=== PATIENT | male | born 1960 | race Caucasian/White ===

== ENCOUNTER 2017-02-12 17:13 | Inpatient (IN) | payer MEDICARE, MEDICAID ==
[~2017-02-12 17:13] MED LIST: ADVAIR HFA 115-12 GM IH; ALBUTEROL I0.5 ML/EA AERO NEB; AMARYL1 MG PO; AMIODARONE HCL200 MG PO; ASPIR 8181 M1 PO; ASPIRIN81 MG PO; ATROVENT0.2 MG/ML IH; AURYXIA PO; BENAZEPRIL HCL20 MG PO; BUMEX1 MG PO; CALCIUM ACETAT667 MG PO; CELEXA20 M1 PO; CELEXA20 M2 PO; CIPRO500 MG PO; COMBIVENT1 PUFF INH; CORDARONE200 M1 PO; COZAAR50 MG PO; DEPRESSION PILL PO; DOXYCYCLINE HY100 MG PO; DUONEB 2.5-0.5MG3 M1; GLUCAGON EME1 MG/KIT IM; GLUCAGON1 MG/KIT IJ; GLUCOPHAGE XR500 MG PO; GLUCOTROL5 MG PO; LEVAQUIN500 MG PO; LISINOPRIL10 MG PO; LISINOPRIL20 MG PO; LOPERAMIDE2 M2 PO; LOPERAMIDE2 MG PO; LOPRESSOR50 MG PO; MAXZIDE 37.5 M1 EACH PO; METOPROLOL TART25 MG PO; MIRALAX17 G1 PO; NEBULIZER INH; NORCO 5/325 TAB1 TAB PO; NORVASC5 MG PO; OXYGEN; PHOSLO667 M1 PO; PREDNISONE10 MG PO; RENAGEL800 M1 PO; RENAGEL800 MG PO; RENVELA800 M1 PO; RENVELA800 MG PO; SENSIPAR90 M1 PO; SIMVASTATIN20 M1 PO; SIMVASTATIN20 MG PO; SYMBICORT 160-1 PUFF INH; VANCOMYCIN750 MG/150 IV; VIBRAMYCIN100 MG PO; ZESTRIL20 MG PO; ZOCOR20 MG PO; ZOFRAN4 MG PO; [UNRECOGNIZED DRUG - MIXTURE] PO
[2017-02-12 17:55] LABS: ABG CO2 ARTERIAL 28 mmol/L (21-27); ARTERIAL BLD GAS O2 SATURATION 77 % (95-98); ARTERIAL BLOOD GAS PCO2 54 mmHg (32-45); BICARBONATE 26 mmol/L (21-28); BLOOD GAS BASE EXCESS 0 mM/L (-/+3); PH 7.31 Units (7.35-7.45)
[2017-02-12 17:56] LABS: ARTERIAL PO2 46 mmHg (70-100)
[2017-02-12 19:35] LABS: BASO % 0.3 % (0-2); EOS % 1.1 % (0-7); EOSINOPHIL ABSOLUTE COUNT 0.1 tho/cmm (0.0-0.7); HCT-HEMATOCRIT 28.8 % (36.0-53.5); HGB-HEMOGLOBIN 8.9 gm/dl (13.5-17.0); IMMATURE GRANULOCYTES ABSOLUTE 0.02 tho/cmm (0-0.03); IMMATURE GRANULOCYTES PERCENT 0.2 % (0-0.3); LYMPH % 5.9 % (20-45); LYMPH ABSOLUTE COUNT 0.7 tho/cmm (0.8-4.5); MCH (MEAN CORPUSCULAR HGB) 29.8 pg (28.0-32.0); MCHC MEAN CORPUSCULAR HGB CONC 30.9 % (32.0-36.0); MCV (MEAN CELL VOLUME) 96.3 fl (82.0-96.0); MEAN PLATELET VOLUME 10.5 cmc (9.4-12.4); MONO % 3.8 % (0-12); MONOCYTE ABSOLUTE COUNT 0.5 tho/cmm (0.0-1.2); NEUTROPHIL ABSOLUTE COUNT 10.9 tho/cmm (1.6-8.0); NEUTROPHIL-AUTOMATED 10.9 tho/cmm (1.6-8.0); NEUTROPHILS % 88.7 % (40-80); PLATELET COUNT 207 tho/cmm (150-450); RED BLOOD COUNT 2.99 mil/cmm (4.40-5.70); RED CELL DISTRIBUTION WIDTH 15.6 % (12.4-16.4); WHITE BLOOD COUNT 12.3 tho/cmm (4.0-10.0)
[2017-02-12 19:58] LABS: ANION GAP 16 mmol/L (0-20); BLOOD UREA NITROGEN 38 mg/dl (6-24); CALCIUM 7.9 mg/dl (8.5-10.5); CARBON DIOXIDE-VENOUS 27 mmol/L (22-32); CHLORIDE 99 mmol/l (96-110); CREATININE 7.86 mg/dl (0.60-1.30); GLUCOSE 175 mg/dL (70-110); POTASSIUM 3.9 mmol/L (3.7-5.1); SODIUM 138 mmol/L (135-145); eGFR VALUE FOR BLACK 8 mL/Min
[2017-02-12 21:57] LABS: ALB/GLOB RATIO 0.7 (0.8-2.0); ALBUMIN 3.6 g/dl (3.5-5.0); ALKALINE PHOSPHATASE 160 U/L (33-138); ALT/SGPT 16 U/L (12-78); AST/SGOT 14 U/L (10-40); BILIRUBIN,DIRECT <0.1 mg/dl (0.0-0.3); BILIRUBIN,INDIRECT 0.2 mg/dL (0.0-1.0); BILIRUBIN,TOTAL 0.3 mg/dl (0.0-1.5); C-REACTIVE PROTEIN 7.8 mg/dl (0-0.9)
[2017-02-12 22:02] LABS: PROCALCITONIN 3.28 ng/ml (0.05-0.09)
[2017-02-12 22:44] LABS: ABG CO2 ARTERIAL 22 mmol/L (21-27); ARTERIAL BLD GAS O2 SATURATION 100 % (95-98); ARTERIAL BLOOD GAS PCO2 27 mmHg (32-45); ARTERIAL PO2 144 mmHg (70-100); BICARBONATE 21 mmol/L (21-28); BLOOD GAS BASE EXCESS -1 mM/L (-/+3)
[2017-02-13 04:34] LABS: BASO % 0.1 % (0-2); EOS % 0.1 % (0-7); HGB-HEMOGLOBIN 8.3 gm/dl (13.5-17.0); IMMATURE GRANULOCYTES ABSOLUTE 0.02 tho/cmm (0-0.03); IMMATURE GRANULOCYTES PERCENT 0.2 % (0-0.3); LYMPH % 2.6 % (20-45); LYMPH ABSOLUTE COUNT 0.3 tho/cmm (0.8-4.5); MCH (MEAN CORPUSCULAR HGB) 29.3 pg (28.0-32.0); MCHC MEAN CORPUSCULAR HGB CONC 30.7 % (32.0-36.0); MCV (MEAN CELL VOLUME) 95.4 fl (82.0-96.0); MEAN PLATELET VOLUME 10.9 cmc (9.4-12.4); MONOCYTE ABSOLUTE COUNT 0.1 tho/cmm (0.0-1.2); NEUTROPHIL ABSOLUTE COUNT 9.6 tho/cmm (1.6-8.0); NEUTROPHIL-AUTOMATED 9.6 tho/cmm (1.6-8.0); PLATELET COUNT 208 tho/cmm (150-450); RED BLOOD COUNT 2.83 mil/cmm (4.40-5.70); RED CELL DISTRIBUTION WIDTH 15.4 % (12.4-16.4)
[2017-02-13 04:45] LABS: ANION GAP 19 mmol/L (0-20); BLOOD UREA NITROGEN 50 mg/dl (6-24); CALCIUM 8.1 mg/dl (8.5-10.5); CARBON DIOXIDE-VENOUS 23 mmol/L (22-32); CHLORIDE 97 mmol/l (96-110); CREATININE 8.81 mg/dl (0.60-1.30); POTASSIUM 4.3 mmol/L (3.7-5.1); SODIUM 135 mmol/L (135-145); eGFR VALUE FOR BLACK 7 mL/Min
[2017-02-13 04:46] LABS: GLUCOSE 303 mg/dL (70-110)
[2017-02-13] MEDS ORDERED: AMOXICILLIN875 M1 PO (10:38)
[2017-02-13] MEDS ORDERED: DALIRESP500 MC1 PO (10:38)
[2017-02-13] MEDS ORDERED: ALBUTEROL S5 MG/1 ML INH (10:38)
[2017-02-13] MEDS ORDERED: GLUCAGON EMERGEN1 MG SC (10:39)
[2017-02-13] MEDS ORDERED: AMBIEN5 M1 PO (10:40)
[2017-02-13] MEDS ORDERED: IPRAT-ALBUT 0.5-3 ML INH (10:40)
[2017-02-13] MEDS ORDERED: LEVOTHYROXINE50 MC3 PO (10:40)
[2017-02-13] MEDS ORDERED: SYMBICORT 160-1 PUFF INH (10:41)
[2017-02-13] MEDS ORDERED: AURYXIA PO (10:51)
[2017-02-14] MEDS ORDERED: PREDNISONE10 M1 PO (14:53)
[2017-02-14] MEDS ORDERED: ZITHROMAX250 M1 PO (14:54)
[2017-02-14] MEDS ORDERED: IPRAT-ALBUT 0.5-3 ML INH (14:55)
== END 2017-02-14 15:30 | DRG 190 ==
LOC: EDMED 17:13 → EMR2 21:30 → PCUA 23:45
PROVIDERS: Emergency Medicine; Internal Medicine; Internal Medicine Cardiovascular Disease; ADMIT Hospitalist
PROC: 5A09357 Assistance with Respiratory Ventilation, Less than 24 Consecutive Hours, Continuous Positive Airway Pressure (ICD-10-PCS; principal; 2017-02-12)
PROC: 5A1D00Z (ICD-10-PCS; 2017-02-14)
DX: J44.1 Chronic obstructive pulmonary disease with (acute) exacerbation (principal); N18.6 End stage renal disease; J96.21 Acute and chronic respiratory failure with hypoxia; I12.0 Hypertensive chronic kidney disease with stage 5 chronic kidney disease or end stage renal disease; E11.22 Type 2 diabetes mellitus with diabetic chronic kidney disease; I48.0 Paroxysmal atrial fibrillation; N25.81 Secondary hyperparathyroidism of renal origin; Z99.2 Dependence on renal dialysis; E78.5 Hyperlipidemia, unspecified; M79.605 Pain in left leg; M79.604 Pain in right leg; Z88.8 Allergy status to other drugs, medicaments and biological substances; D72.829 Elevated white blood cell count, unspecified; T38.0X5A Adverse effect of glucocorticoids and synthetic analogues, initial encounter; E11.51 Type 2 diabetes mellitus with diabetic peripheral angiopathy without gangrene; Z85.528 Personal history of other malignant neoplasm of kidney; Z79.82 Long term (current) use of aspirin; G47.33 Obstructive sleep apnea (adult) (pediatric); D63.1 Anemia in chronic kidney disease; E66.9 Obesity, unspecified; I35.1 Nonrheumatic aortic (valve) insufficiency; Z99.81 Dependence on supplemental oxygen; Z87.891 Personal history of nicotine dependence
CPT/HCPCS: J0456; J0885; J1644; J2405; J2543; J2930; J7050; J7512; P9047